=== PATIENT | male | born 1965 | race Caucasian/White ===

== ENCOUNTER 2017-12-07 22:42 | Emergency (ER) | payer MEDICAID ==
--- NOTE | 2017-12-07 22:54 | Emergency Department Record ---
History of Present Illness - General Chief complaint: Lower Extremity Pain Stated complaint: BACK/LEG PAIN Time Seen by Provider: 12/07/17 22:48 Source: Patient, EMS Mode of Arrival: Wheelchair Limitations: No limitations - History of Present Illness Initial comments: 52 yo male presents with EMS from [place]. The patient states he suffers from chronic back pain and chronic leg weakness. He was in [place] and needed a ride back to [place] where he lives so he states he called an ambulance. He was visiting his father. He got to [place] via [place] yesterday but did not have a ride home tonight. He admits to drinking. He denies any injures today. His back pain and leg issues are unchanged from his chronic condition. He states he is embarrassed that he used the ambulance to get back to [facility]. He had surgery in June to help the chronic pain and weakness but states it did very little to improve his condition. No headaches, no nausea, vomiting or diarrhea. MD Complaint: Other (chronic back and leg pain.) -: Year(s) Location: Left -: Yes Arthralgia Quality: Aching Consistency: Constant Improves with: Rest Worsens with: Walking, Weight bearing Associated Symptoms: Denies other symptoms - Related Data Allergies Allergy/AdvReac Type Severity Reaction Status Date / Time No Known Allergies Allergy . Unverified 11/28/17 10:09 Review of Systems Constitutional: Denies: Chills, Fever, Malaise, Weakness Eyes: Denies: Eye discharge, Eye pain ENT: Denies: Congestion, Throat pain Respiratory: Denies: Cough, Dyspnea, Hemoptysis, Stridor, Wheezes Cardiovascular: Denies: Chest pain, Palpitations, Syncope Endocrine: Denies: Fatigue Gastrointestinal: Denies: Abdominal pain, Diarrhea, Nausea, Vomiting Genitourinary: Denies: Dysuria, Frequency, Hematuria Musculoskeletal: Reports: As per HPI, Back pain, Neck pain. Denies: Joint swelling, Myalgia Skin: Denies: Bruising, Change in color, Rash Neurological: Denies: Confusion, Headache, Numbness, Weakness Psychiatric: Denies: Anxiety Hematological/Lymphatic: Denies: Blood Clots, Easy bleeding, Easy bruising, Swollen glands Past Medical History - SOCIAL HISTORY Smoking Status: Current every day smoker - RESPIRATORY Hx Respiratory Disorders: No - CARDIOVASCULAR Hx Cardio Disorders: Yes Comment:: high cholesterol - NEURO Hx Neuro Disorders: Yes Hx Neuropathy: Yes - GI Hx GI Disorders: Yes Hx Reflux: Yes Hx Pancreatitis: Yes - Hx Genitourinary Disorders: No - ENDOCRINE Hx Endocrine Disorders: No - MUSCULOSKELETAL Hx Musculoskeletal Disorders: Yes Comment:: Sciatic pain - PSYCH Hx Psych Problems: No - HEMATOLOGY/ONCOLOGY Hx Hematology/Oncology Disorders: No Family Medical History Hx Cancer: Brother/Sister *Cancer Comment: brain Hx Heart Disease: Mother *Heart Comment: [place] Physical Exam - General General Appearance: Alert, Oriented x3, Cooperative Limitations: No limitations - Head Head exam: Atraumatic, Normocephalic, Normal inspection - Eye Eye exam: Normal appearance, PERRL. negative: Conjunctival injection, Scleral icterus - ENT ENT exam: Normal exam, Mucous membranes moist Ear exam: Normal external inspection Nasal Exam: Normal inspection Mouth exam: Normal external inspection - Neck Neck exam: Normal inspection, Full ROM. negative: Tenderness - Respiratory Respiratory exam: Normal lung sounds bilaterally. negative: Respiratory distress - Cardiovascular Cardiovascular Exam: Normal rhythm, Normal heart sounds Peripheral Pulses: 2+: Radial (R), Radial (L) - GI/Abdominal GI/Abdominal exam: Soft. negative: Guarding, Rebound, Rigid, Tenderness - Rectal Rectal exam: Deferred - exam: Deferred - Extremities Extremities exam: Normal inspection, Full ROM, Normal capillary refill. negative: Pedal edema, Tenderness - Back Back exam: Reports: Normal inspection, Full ROM, Paraspinal tenderness, Vertebral tenderness (lumbar). Denies: CVA tenderness (R), CVA tenderness (L) - Neurological Neurological exam: Alert, Oriented X3, Other (Walks without assistance, mild widebased, no foot drop, no limitation on walking) - Psychiatric Psychiatric exam: Normal affect, Normal mood, Other (cooperative, conversational , pleasant). negative: Agitated, Anxious - Skin Skin exam: Dry, Intact, Normal color, Warm Course Vital Signs 12/07/17 22:45 Pulse Rate [ 94 H Pulse Ox Probe] Respiratory 20 Rate Blood Pressure 155/103 [Left Arm] Pulse Ox 96 - Reevaluation(s) Reevaluation #1: 12/07/17 22:59 The EMR was reviewed A note from [facility] was reviewed from 09/28/17. The same difficult, wide based gait issues were noted and corroborate the patient's statement of chronic gait difficulties. "GAIT: the patient appears to have balance issues. Walks with a wobbly gait and wide base..." MRI from 01/2017 was reviewed with multilevel, mild to moderate disease. 12/07/17 23:03 The patient states he would like to go home at this time. 12/07/17 23:04 The patient denies any new complaints. He does not have any acute findings on examination that differ from prior notes. He has been drinking but he is alert , expresses clear thoughts, recalls all events, provides a logical history of how he came into our care. He will be encourage to rest and allow serial exams here. He is cooperative and pleasant. 12/08/17 00:56 The patient remains cooperative. He seems to be near a baseline. Given the hour I have offered a comfortable bed and food unless he can get a ride. 12/08/17 04:56 The patient has remained very cooperative. He has been sleeping comfortably. He has been up ambulating at times as well. No complaints. Good appetite. 12/08/17 05:20 The patient is up to the restroom. No complaints. He is at his baseline. He requests to wait until 6am when the [employer] buses are in operation. His walking is slightly wide based. He states this is his norm. This is consistent with the physical therapy note that was reviewed. Disposition Disposition: Discharge Clinical Impression: Chronic back pain, Alcohol use Disposition: Home, Self-Care Condition: (1) Good Instructions: Chronic Back Pain (ED) Additional Instructions: Follow up your back pain with your doctor Return to the ER if you have any new concerns, new pain, or weakness Avoid excessive alcohol Forms: Patient Portal Access Time of Disposition: 06:23 Quality - Quality Measures Quality Measures: N/A - Blood Pressure Screening Does Patient Have Any of the Following: No Blood Pressure Classification: Hypertensive Reading Systolic Measurement: 164 Diastolic Measurement: 95 Screening for High Blood Pressure: < Pre-Hypertensive BP, F/U Documented > [ G8950] Pre-Hypertensive Follow-up Interventions: Referral to alternative/primary care provider.
== END 2017-12-08 06:31 | disposition home or self-care (01) ==
LOC: ER 22:42
DX: M54.5 Low back pain (principal); G89.29 Other chronic pain; M79.605 Pain in left leg; R26.89 Other abnormalities of gait and mobility; F17.210 Nicotine dependence, cigarettes, uncomplicated; Z72.89 Other problems related to lifestyle
CPT/HCPCS: 99282

== ENCOUNTER 2018-01-17 18:57 | Emergency (ER) | payer MEDICAID ==
[2018-01-17] MEDS ORDERED: MVI, ADULT NO.4 WITH VIT K 10 ML, THIAMINE HCL IV 100 MG in 0.9 % SODIUM CHLORIDE 1000M... IV SCH ×3 (19:45)
[2018-01-17 19:54] LABS: BASO % 0.3 % (0-6); EOS % 6.6 % (0-6); GRAN % 32.6 % (47-80); HEMATOCRIT 50.1 % (42.0-52.0); HEMOGLOBIN 17.1 gm/dl (14.0-18.0); LYMPH % 48.9 % (16-45); MEAN CELL VOLUME 91.3 fl (81-97); MEAN CORPUSCULAR HEMOGLOBIN 31.1 pg (27-33); MEAN CORPUSCULAR HGB CONC 34.1 g/dl (32-36); MEAN PLATELET VOLUME 9.3 fl (7.4-10.4); MONO % 11.6 % (0-9); PLATELET COUNT 296 K/uL (130-400); RED BLOOD COUNT 5.49 M/uL (4.40-5.70); RED CELL DISTRIBUTION WIDTH 12.4 % (11.5-14.5); WHITE BLOOD COUNT W/O DIFF 6.5 K/uL (4.2-12.2)
[2018-01-17] MEDS ORDERED: LORAZEPAM 2 MG/ML VIAL IV ONE ×2 (19:54→22:47)
[2018-01-17 20:17] LABS: ALB/GLOB RATIO 1.2 (1.1-1.8); ALBUMIN 4.7 g/dL (4.0-5.0); ALKALINE PHOSPHATASE 75 U/L (40-129); ALT/SGPT 73 U/L (<41); AST/SGOT 61 U/L (10.0-50.0); BLOOD UREA NITROGEN 5 mg/dL (6-20); CREATININE 0.6 mg/dL (0.7-1.2); EST GLOMERULAR FILTRATION RATE > 60 mL/min; GLUCOSE,RANDOM 104 mg/dL (74-109); TOTAL PROTEIN 8.5 g/dL (6.6-8.7)
[2018-01-17 20:18] LABS: ALCOHOL 0.352 g/dL (0-0.010)
--- NOTE | 2018-01-17 20:53 | Emergency Department Record ---
History of Present Illness - General Chief Complaint: Alcohol Intoxication Stated Complaint: INTOXICATED Time Seen by Provider: 01/17/18 19:20 Source: Patient, Police Mode of Arrival: Ambulatory Limitations: No limitations, Altered mental status - History of Present Illness Initial Comments: pt brought in by ems, police because he is intoxicated and he fell and hit his head very hard. MD Complaint: Alcohol intoxication Last Drink: Just [employer] Chronic Alcohol Use: Yes Previous Visits for Alcohol Intoxication?: Yes Recent Trauma: Yes Associated Symptoms: Denies other symptoms Treatments Prior to Arrival: None - [place] Coma Scale Eye Response: (4) Open spontaneously Motor Response: (6) Obeys commands Verbal Response: (4) Confused conversation [place] Total: 14 - Related Data Allergies Allergy/AdvReac Type Severity Reaction Status Date / Time No Known Allergies Allergy . Verified 01/17/18 19:09 Travel Screening - Travel/Exposure Within Last 30 Days Have you traveled within the last 30 days?: No - Travel/Exposure Within Last Year Have you traveled outside the [place] in the last year?: No - Additonal Travel Details Have you been exposed to anyone with a communicable illness?: No - Travel Symptoms Symptom Screening: None Review of Systems ROS unobtainable: Due to mental status Reviewed: No additional complaints except as noted below Constitutional: Reports: As per HPI. Denies: Chills, Fever, Malaise, Night sweats, Weakness, Weight change Eyes: Reports: As per HPI. Denies: Eye discharge, Eye pain, Photophobia, Vision change ENT: Reports: As per HPI. Denies: Congestion, Dental pain, Ear pain, Epistaxis , Hearing loss, Throat pain Respiratory: Reports: As per HPI. Denies: Cough, Dyspnea, Hemoptysis, Stridor, Wheezes Cardiovascular: Reports: As per HPI. Denies: Arrhythmia, Chest pain, Dyspnea on exertion, Edema, Murmurs, Orthopnea, Palpitations, Paroxysmal nocturnal dyspnea, Rheumatic Fever, Syncope Endocrine: Reports: As per HPI. Denies: Fatigue, Heat or cold intolerance, Polydipsia, Polyuria Gastrointestinal: Reports: As per HPI. Denies: Abdominal pain, Constipation, Diarrhea, Hematemesis, Hematochezia, Melena, Nausea, Vomiting Genitourinary: Reports: As per HPI. Denies: Dysuria, Frequency, Hematuria, Incontinence, Retention, Testicular pain, Testicular mass, Urgency Musculoskeletal: Reports: As per HPI. Denies: Arthralgia, Back pain, Gout, Joint swelling, Myalgia, Neck pain Skin: Reports: As per HPI. Denies: Bruising, Change in color, Change in hair/ nails, Lesions, Pruritus, Rash Neurological: Reports: As per HPI. Denies: Abnormal gait, Confusion, Headache, Numbness, Paresthesias, Seizure, Tingling, Tremors, Vertigo, Weakness Psychiatric: Reports: As per HPI. Denies: Anxiety, Auditory hallucinations, Depression, Homicidal thoughts, Suicidal thoughts, Visual hallucinations Hematological/Lymphatic: Reports: As per HPI. Denies: Anemia, Blood Clots, Easy bleeding, Easy bruising, Swollen glands Past Medical History - SOCIAL HISTORY Smoking Status: Current every day smoker Alcohol Use: Heavy Drug Use: Occasional - RESPIRATORY Hx Respiratory Disorders: No - CARDIOVASCULAR Hx Cardio Disorders: Yes Comment:: high cholesterol - NEURO Hx Neuro Disorders: Yes Hx Neuropathy: Yes - GI Hx GI Disorders: Yes Hx Reflux: Yes Hx Pancreatitis: Yes - Hx Genitourinary Disorders: No - ENDOCRINE Hx Endocrine Disorders: No - MUSCULOSKELETAL Hx Musculoskeletal Disorders: Yes Comment:: Sciatic pain - PSYCH Hx Psych Problems: No - HEMATOLOGY/ONCOLOGY Hx Hematology/Oncology Disorders: No Family Medical History Any Significant Family History?: No Hx Cancer: Brother/Sister *Cancer Comment: brain Hx Heart Disease: Mother *Heart Comment: [place] Physical Exam - General General Appearance: Alert, Oriented x3, Mild distress, Other (intoxicated) - Head Head exam: Normal inspection - Eye Eye exam: Normal appearance, PERRL, EOMI Pupils: Normal accommodation - ENT ENT exam: Normal exam, Mucous membranes moist, Normal external ear exam, Normal orophraynx, TM's normal bilaterally Ear exam: Normal external inspection. negative: External canal tenderness Nasal Exam: Normal inspection. negative: Discharge, Sinus tenderness Mouth exam: Normal external inspection, Tongue normal Teeth exam: Normal inspection. negative: Dental caries Throat exam: Normal inspection. negative: Tonsillar erythema, Tonsillar exudate - Neck Neck exam: Normal inspection, Full ROM. negative: Tenderness - Respiratory Respiratory exam: Normal lung sounds bilaterally. negative: Respiratory distress - Cardiovascular Cardiovascular Exam: Regular rate, Normal rhythm, Normal heart sounds - GI/Abdominal GI/Abdominal exam: Soft, Normal bowel sounds. negative: Tenderness - Rectal Rectal exam: Deferred - exam: Deferred - Extremities Extremities exam: Normal inspection, Full ROM, Normal capillary refill. negative: Tenderness - Back Back exam: Reports: Normal inspection, Full ROM. Denies: Muscle spasm, Rash noted, Tenderness - Neurological Neurological exam: Alert, CN II-XII intact, Normal gait, Oriented X3 - Psychiatric Psychiatric exam: Normal affect, Normal mood - Skin Skin exam: Dry, Intact, Normal color, Warm Course Vital Signs 01/17/18 19:09 Pulse Rate [ 95 H Pulse Ox Probe] Respiratory 14 Rate Blood Pressure 128/84 [Left Arm] Pulse Ox 96 - Reevaluation(s) Reevaluation #1: 01/18/18 02:21 pt slept andis now being taken by the police Medical Decision Making - Lab Data Result diagrams: 01/17/18 19:35 01/17/18 19:38 Lab Results 01/17/18 01/17/18 01/17/18 Range/Units 19:35 19:38 19:38 WBC 6.5 (4.2-12.2) K/uL RBC 5.49 (4.40-5.70) M/uL Hgb 17.1 (14.0-18.0) gm/dl Hct 50.1 (42.0-52.0) % MCV 91.3 (81-97) fl MCH 31.1 (27-33) pg MCHC 34.1 (32-36) g/dl RDW 12.4 (11.5-14.5) % Plt Count 296 (130-400) K/uL MPV 9.3 (7.4-10.4) fl Gran % 32.6 L (47-80) % Lymphocytes % 48.9 H (16-45) % Monocytes % 11.6 H (0-9) % Eosinophils % 6.6 H (0-6) % Basophils % 0.3 (0-6) % Sodium 140 (136-145) mmol/L Potassium 4.1 (3.4-4.5) mmol/L Chloride 102 (98-107) mmol/L Carbon Dioxide 20.0 L (22-29) mmol/L Anion Gap 18.0 H (7-16) BUN 5 L (6-20) mg/dL Creatinine 0.6 L (0.7-1.2) mg/dL Estimated GFR > 60 mL/min Random Glucose 104 (74-109) mg/dL Calcium 9.3 (8.6-10.0) mg/dL Total Bilirubin 0.30 (0.2-1.0) mg/dL AST 61 H (10.0-50.0) U/L ALT 73 H (<41) U/L Alkaline Phosphatase 75 (40-129) U/L Total Protein 8.5 (6.6-8.7) g/dL Albumin 4.7 (4.0-5.0) g/dL Globulin 3.8 (1.4-4.8) gm/dL Albumin/Globulin Ratio 1.2 (1.1-1.8) Ethyl Alcohol Cancelled 0.352 H Disposition Clinical Impression: Alcohol intoxication Qualifiers: Complication of substance-induced condition: uncomplicated Qualified Code(s): F10.920 - Alcohol use, unspecified with intoxication, uncomplicated Disposition: Home, Self-Care Condition: (1) Good Instructions: Alcohol Intoxication (ED), Abuse of Alcohol (ED) Additional Instructions: follow up with family doctor. return sooner if worse. decrease alcohol intake. Forms: Patient Portal Access Quality - Quality Measures Quality Measures: N/A - Blood Pressure Screening Does Patient Have Any of the Following: No Blood Pressure Classification: Pre-Hypertensive BP Reading Systolic Measurement: 116 Diastolic Measurement: 83 Screening for High Blood Pressure: < Pre-Hypertensive BP, F/U Documented > [ G8950] Pre-Hypertensive Follow-up Interventions: Follow-up with rescreen every year.
--- NOTE | 2018-01-19 09:04 | CT SCAN REPORT ---
EXAM: CT SCAN OF THE HEAD HISTORY: PATIENT HAS A HISTORY OF INTOXICATION. PATIENT FELL AND HIT HEAD. TECHNIQUE: Serial axial CT scan of the head was performed 2.5 mm intervals from the base of the skull to the apex without the use of intravenous contrast. Comparison: MRI of the brain dated 02/22/17 is provided. FINDINGS: The ventricles, cisterns, and sulci appear within normal limits for size, shape and attenuation. There is no mass or mass effect. The lemus and white differentiation appear within normal limits. There is no CT evidence of intra or extraaxial fluid collection to suggest bleeding. Bone windows demonstrate no CT evidence of a fracture or dislocation of the skull. Moderate mucosal thickening is noted within the bilateral maxillary sinuses. IMPRESSION: NO CT EVIDENCE OF AN ACUTE INTRACRANIAL PROCESS. JOB NUMBER: [id number] [facility]
--- NOTE | 2018-01-19 09:29 | CT SCAN REPORT ---
EXAM: CT SCAN OF THE CERVICAL SPINE HISTORY: PATIENT HAS A HISTORY OF FALL. TECHNIQUE: Serial axial CT scan of the cervical spine was performed at 2.5 mm intervals from the base of the skull to the thoracic inlet without the use of intravenous contrast. Sagittal and coronal reconstructions are provided. Comparison: MRI of the cervical spine dated 02/22/17. is provided. FINDINGS: The vertebral body height, contour, and AP alignment of the cervical spine is within normal limits. In the interval there has been post laminectomy changes at the C3-C4 disk space level. Bilateral posterior facet screws and fusion rods are identified. No hardware failure is noted. There is no CT evidence of a fracture or dislocation of the cervical spine. Degenerative disk disease of the lower cervical spine is again noted. The prevertebral soft tissue is unremarkable. The parapharyngeal fat is unremarkable. The visualized parotid glands, submandibular glands, and thyroid gland are unremarkable. There is no CT evidence of cervical lymphadenopathy. Airways are patent. The lung windows of the lung apices are unremarkable. IMPRESSION: POSTOPERATIVE CHANGES OF THE CERVICAL SPINE AND DEGENERATIVE DISK DISEASE OF THE CERVICAL SPINE ARE NOTED WITHOUT CT EVIDENCE OF AN ACUTE PROCESS INVOLVING THE CERVICAL SPINE. JOB NUMBER: [id number] [facility]
== END 2018-01-18 02:33 | disposition home or self-care (01) ==
LOC: ER 18:57
DX: S09.90XA Unspecified injury of head, initial encounter (principal); F10.920 Alcohol use, unspecified with intoxication, uncomplicated; Y90.8 Blood alcohol level of 240 mg/100 ml or more; W01.10XA Fall on same level from slipping, tripping and stumbling with subsequent striking against unspecified object, initial encounter; F17.210 Nicotine dependence, cigarettes, uncomplicated
CPT/HCPCS: 99284 ×2; 96376; 96374; 96375; 85025; 80053; 72125; 70450; G0480; J2060; 80320; J3411; J7030

== ENCOUNTER 2018-05-08 17:06 | Emergency (ER) | payer MEDICAID ==
--- NOTE | 2018-05-08 18:05 | Emergency Department Record ---
History of Present Illness - General Chief Complaint: Alcohol Intoxication Stated Complaint: INTOXICATION Time Seen by Provider: 05/08/18 18:00 Source: Patient Mode of Arrival: Ambulatory Limitations: No limitations - History of Present Illness Initial Comments: 52 yo male presents to ED for evaluation of alcohol intoxication, brought by police for medical clearance to go to custodial. Patient denies pain or injury, but does report alcohol use today. Patient denies health problems at his baseline. 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) Chronic Alcohol Use: Yes Recent Trauma: No Associated Symptoms: Denies other symptoms Treatments Prior to Arrival: None - [place] Coma Scale Eye Response: (4) Open spontaneously Motor Response: (6) Obeys commands Verbal Response: (5) Oriented [place] Total: 15 - Related Data Allergies Allergy/AdvReac Type Severity Reaction Status Date / Time No Known Allergies Allergy Unverified 04/22/18 10:22 Travel Screening - Travel/Exposure Within Last 30 Days Have you traveled within the last 30 days?: No Review of Systems Constitutional: Denies: Chills, Fever, Malaise, Night sweats Eyes: Denies: Eye discharge, Eye pain ENT: Denies: Congestion, Ear pain, Epistaxis Respiratory: Denies: Cough, Dyspnea Cardiovascular: Denies: Chest pain, Dyspnea on exertion, Palpitations Endocrine: Denies: Fatigue, Heat or cold intolerance Gastrointestinal: Denies: Abdominal pain, Nausea, Vomiting Genitourinary: Denies: Incontinence, Retention Musculoskeletal: Denies: Arthralgia, Back pain, Gout, Joint swelling Skin: Denies: Bruising, Change in color Neurological: Denies: Abnormal gait, Confusion, Headache Psychiatric: Denies: Anxiety Hematological/Lymphatic: Denies: Anemia, Blood Clots Past Medical History - SOCIAL HISTORY Smoking Status: Current every day smoker Alcohol Use: Heavy Drug Use: None - RESPIRATORY Hx Respiratory Disorders: No - CARDIOVASCULAR Hx Cardio Disorders: Yes Comment:: high cholesterol - NEURO Hx Neuro Disorders: Yes Hx Neuropathy: Yes - GI Hx GI Disorders: Yes Hx Reflux: Yes Hx Pancreatitis: Yes - Hx Genitourinary Disorders: No - ENDOCRINE Hx Endocrine Disorders: No - MUSCULOSKELETAL Hx Musculoskeletal Disorders: Yes Comment:: Sciatic pain - PSYCH Hx Psych Problems: No - HEMATOLOGY/ONCOLOGY Hx Hematology/Oncology Disorders: No Family Medical History Any Significant Family History?: Yes Hx Cancer: Brother/Sister *Cancer Comment: brain Hx Heart Disease: Mother *Heart Comment: [place] Physical Exam - General General Appearance: Alert, Oriented x3, Cooperative, Mild distress, Other ( Clinically intoxicated on examination, mild slurred speech, moves all extremities spontaneously.) Limitations: No limitations - Head Head exam: Atraumatic, Normocephalic Head exam detail: Abrasion, Other (Mild abrasions to the right forehead that are healing.). negative: Contusion, Lincoln's sign, General tenderness, Hematoma , Laceration - Eye Eye exam: Normal appearance. negative: Conjunctival injection, Periorbital swelling, Periorbital tenderness, Scleral icterus - ENT Ear exam: negative: Auricular hematoma, Auricular trauma Nasal Exam: negative: Active bleeding, Discharge, Dried blood, Foreign body Mouth exam: negative: Drooling, Laceration, Muffled voice, Tongue elevation - Neck Neck exam: Normal inspection. negative: Meningismus, Tenderness - Respiratory Respiratory exam: Normal lung sounds bilaterally. negative: Respiratory distress, Rhonchi, Stridor, Wheezes - Cardiovascular Cardiovascular Exam: Regular rate, Normal rhythm, Normal heart sounds - GI/Abdominal GI/Abdominal exam: Soft. negative: Rebound, Rigid, Tenderness - Rectal Rectal exam: Deferred - exam: Deferred - Extremities Extremities exam: Normal inspection, Other (Abrasions to the right hand/distal forearm dorsally, FROM, strong distal radial pulse). negative: Calf tenderness , Pedal edema, Tenderness - Back Back exam: Denies: CVA tenderness (R), CVA tenderness (L) - Neurological Neurological exam: Alert, Oriented X3. negative: Motor sensory deficit - Psychiatric Psychiatric exam: Normal affect, Normal mood - Skin Skin exam: Abrasion (asz described above) Type of lesion: abrasion Course Vital Signs 05/08/18 17:19 Temperature 98.4 F Pulse Rate [ 116 H Pulse Ox Probe] Respiratory 18 Rate Blood Pressure 134/83 [Left Arm] Pulse Ox 93 L - Reevaluation(s) Reevaluation #1: 05/08/18 18:41 Laboratory studies were reviewed: ETOH 0.400 AG 19 AST 63/ALT 58 Labs are otherwise grossly unremarkable for an acute process. IVFs are infusing for elevated heart rate, will initiate imaging of the head at this time given recent evidence for head injury on examination. Reevaluation #2: 05/08/18 19:14 Patient reassessed, resting comfortably at this time. Will continue to observe pending lowering of his alcohol level. Reevaluation #3: 05/08/18 21:19 PBT reassessed by police, 0.235. Patient has ambulated to the bathroom with steady gait, and appears medically cleared for discharge to custodial. Medical Decision Making - Lab Data Result diagrams: 05/08/18 17:20 05/08/18 17:20 Disposition Disposition: Discharge Clinical Impression: Alcohol intoxication Qualifiers: Complication of substance-induced condition: uncomplicated Qualified Code(s): F10.920 - Alcohol use, unspecified with intoxication, uncomplicated Disposition: Home, Self-Care Condition: (2) Stable Instructions: Alcohol Intoxication (ED) Additional Instructions: Return to ED if your symptoms worsen or if you have any concerns. Alcohol in moderation. Forms: Patient Portal Access Time of Disposition: 21:20 Quality - Quality Measures Quality Measures: N/A - Blood Pressure Screening Does Patient Have Any of the Following: No Blood Pressure Classification: Hypertensive Reading Systolic Measurement: 145 Diastolic Measurement: 101 Screening for High Blood Pressure: < First Hypertensive BP, F/U Documented > [ G8950] First Hypertensive Follow-up Interventions: Referral to alternative/primary care provider.
[2018-05-08] MEDS ORDERED: 0.9 % SODIUM CHLORIDE 1000ML 1,000 ML IV SCH (18:15)
[2018-05-08 18:18] LABS: BASO % 0.3 % (0-6); EOS % 2.9 % (0-6); GRAN % 51.6 % (47-80); HEMATOCRIT 48.1 % (42.0-52.0); HEMOGLOBIN 16.6 gm/dl (14.0-18.0); LYMPH % 38.4 % (16-45); MEAN CELL VOLUME 90.6 fl (81-97); MEAN CORPUSCULAR HEMOGLOBIN 31.3 pg (27-33); MEAN CORPUSCULAR HGB CONC 34.5 g/dl (32-36); MEAN PLATELET VOLUME 9.3 fl (7.4-10.4); MONO % 6.8 % (0-9); PLATELET COUNT 244 K/uL (130-400); RED BLOOD COUNT 5.31 M/uL (4.40-5.70); RED CELL DISTRIBUTION WIDTH 13.7 % (11.5-14.5); WHITE BLOOD COUNT W/O DIFF 8.8 K/uL (4.2-12.2)
[2018-05-08 18:32] LABS: BLOOD UREA NITROGEN 6 mg/dL (6-20); CREATININE 0.7 mg/dL (0.7-1.2); EST GLOMERULAR FILTRATION RATE > 60 mL/min
[2018-05-08 18:33] LABS: TOTAL PROTEIN 8.1 g/dL (6.6-8.7)
[2018-05-08 18:35] LABS: GLUCOSE,RANDOM 107 mg/dL (74-109)
[2018-05-08 18:38] LABS: ALB/GLOB RATIO 1.5 (1.1-1.8); ALBUMIN 4.9 g/dL (4.0-5.0); ALKALINE PHOSPHATASE 62 U/L (40-129); ALT/SGPT 58 U/L (<41); AST/SGOT 63 U/L (10.0-50.0)
== END 2018-05-08 21:31 | disposition home or self-care (01) ==
LOC: ER 17:06
DX: F10.920 Alcohol use, unspecified with intoxication, uncomplicated (principal); F17.210 Nicotine dependence, cigarettes, uncomplicated; Y90.8 Blood alcohol level of 240 mg/100 ml or more
CPT/HCPCS: 99283 ×2; 85025; 80053; G0480; 80320

== ENCOUNTER 2018-08-10 11:56 | Emergency (ER) | payer MEDICAID ==
--- NOTE | 2018-08-10 12:25 | Emergency Department Record ---
History of Present Illness - General Chief complaint: Rectal bleeding Stated complaint: RECTAL BLEEDING Time Seen by Provider: 08/10/18 12:05 Source: Patient Mode of Arrival: Ambulatory Limitations: No limitations - History of Present Illness Initial comments: The patient noticed blood on the TP when wiping when having BM's yesterday and the day prior. He has had no nausea, vomiting, AP, dizziness, or bleeding when not having a BM. He also has had no bleeding today and no dizziness when standing. The patient is due to have an EGD and Colonoscopy soon also. MD complaint: Blood on toilet paper, Blood streaked stool Onset/Timin -: Days(s) Improves with: None Worsens with: None Associated Symptoms: Weakness Treatments Prior to Arrival: None - Related Data Allergies Allergy/AdvReac Type Severity Reaction Status Date / Time No Known Allergies Allergy no Unverified 08/10/18 12:03 allergies Travel Screening - Travel/Exposure Within Last 30 Days Have you traveled within the last 30 days?: No Review of Systems Constitutional: Denies: Chills, Fever Eyes: Denies: Eye discharge ENT: Denies: Congestion Respiratory: Denies: Cough, Dyspnea Cardiovascular: Denies: Arrhythmia Past Medical History - SOCIAL HISTORY Smoking Status: Current every day smoker Alcohol Use: Occasional Alcohol Use Comment: beer/vodka (1 pint/couple beers) every other day - RESPIRATORY Hx Respiratory Disorders: No - CARDIOVASCULAR Hx Cardio Disorders: Yes Comment:: high cholesterol - NEURO Hx Neuro Disorders: Yes Hx Neuropathy: Yes - GI Hx GI Disorders: Yes Hx Reflux: Yes Hx Pancreatitis: Yes - Hx Genitourinary Disorders: No - ENDOCRINE Hx Endocrine Disorders: No - MUSCULOSKELETAL Hx Musculoskeletal Disorders: Yes Comment:: Sciatic pain - PSYCH Hx Psych Problems: No - HEMATOLOGY/ONCOLOGY Hx Hematology/Oncology Disorders: No Family Medical History Any Significant Family History?: Yes Hx Cancer: Brother/Sister *Cancer Comment: brain Hx Heart Disease: Mother *Heart Comment: [place] Physical Exam - General General Appearance: Alert, Oriented x3, Cooperative, No acute distress - Head Head exam: Atraumatic, Normocephalic, Normal inspection - Eye Eye exam: Normal appearance, PERRL, EOMI - Neck Neck exam: Normal inspection, Full ROM. negative: Tenderness - Respiratory Respiratory exam: Normal lung sounds bilaterally. negative: Respiratory distress - Cardiovascular Cardiovascular Exam: Regular rate, Normal rhythm, Normal heart sounds - GI/Abdominal GI/Abdominal exam: Soft, Normal bowel sounds. negative: Distended, Hypoactive bowel sounds, Rebound, Rigid, Tenderness - Rectal Rectal exam: Deferred (refused by the patient.) - Extremities Extremities exam: Normal inspection, Full ROM, Normal capillary refill. negative: Tenderness - Neurological Neurological exam: Alert, Normal gait. negative: Abnormal gait Course Vital Signs 08/10/18 11:58 Temperature 98.3 F Pulse Rate 116 H Respiratory 20 Rate Blood Pressure 178/108 Pulse Ox 95 - Reevaluation(s) Reevaluation #1: I did discuss the lab results with the patient. His HGB is very stable at this time but he did have mildly elevated LFT's which has been a chronic issue. Also he did have a mildly elevated Lipase but since the patient is having no AP, nausea, or any abdominal tenderness I do not feel that needs to be investigated further today. He is to see his PCP next week as planned and to have the lab work rechecked and also to see Dr. Alarcon for an Upper and Lower scope. 08/10/18 12:53 Medical Decision Making - Lab Data Result diagrams: 08/10/18 12:20 08/10/18 12:20 Disposition Disposition: Discharge Clinical Impression: GI bleed Qualifiers: GI bleed type/associated pathology: unspecified gastrointestinal hemorrhage type Qualified Code(s): K92.2 - Gastrointestinal hemorrhage, unspecified Disposition: Home, Self-Care Condition: (2) Stable Instructions: Rectal Bleeding (ED) Additional Instructions: Please see Dr. Alarcon in the Specialty clinic when possible and also keep the appointment with your PCP for next week. Please have your family doctor recheck your lab work. Decrease your alcohol intake and stop the Meloxicam. Please return to the ER for any abdominal pain, nausea, vomiting, or worsening bleeding. Referrals: [facility] Special[facility] [Provider Group] Forms: Patient Portal Access Time of Disposition: 13:00 Quality - Quality Measures Quality Measures: N/A - Blood Pressure Screening View Details: Yes Does Patient Have Any of the Following: No Blood Pressure Classification: Hypertensive Reading Systolic Measurement: 178 Diastolic Measurement: 108 Screening for High Blood Pressure: < First Hypertensive BP, F/U Documented > [ [id number]] First Hypertensive Follow-up Interventions: Referral to alternative/primary care provider.
[2018-08-10 12:32] LABS: BASO % 0.3 % (0-6); EOS % 2.7 % (0-6); GRAN % 65.1 % (47-80); HEMATOCRIT 45.8 % (42.0-52.0); HEMOGLOBIN 15.2 gm/dl (14.0-18.0); MEAN CELL VOLUME 90.3 fl (81-97); MEAN CORPUSCULAR HGB CONC 33.2 g/dl (32-36); MEAN PLATELET VOLUME 9.2 fl (7.4-10.4); MONO % 11.9 % (0-9); PLATELET COUNT 211 K/uL (130-400); RED BLOOD COUNT 5.07 M/uL (4.40-5.70); RED CELL DISTRIBUTION WIDTH 13.3 % (11.5-14.5); WHITE BLOOD COUNT W/O DIFF 8.8 K/uL (4.2-12.2)
[2018-08-10 12:39] LABS: BLOOD UREA NITROGEN 13 mg/dL (6-20); CREATININE 0.8 mg/dL (0.7-1.2); EST GLOMERULAR FILTRATION RATE > 60 mL/min
[2018-08-10 12:40] LABS: TOTAL PROTEIN 7.6 g/dL (6.6-8.7)
[2018-08-10 12:41] LABS: INR 1.1; PARTIAL THROMBOPLASTIN TIME 26.6 SECONDS (24.5-39.1); PROTHROMBIN TIME (PATIENT) 10.7 SECONDS (9.5-12.1)
[2018-08-10 12:42] LABS: GLUCOSE,RANDOM 107 mg/dL (74-109)
[2018-08-10 12:44] LABS: ALT/SGPT 73 U/L (<41)
[2018-08-10 12:45] LABS: ALBUMIN 4.5 g/dL (4.0-5.0); ALKALINE PHOSPHATASE 65 U/L (40-129); AST/SGOT 61 U/L (10.0-50.0); LIPASE 121 U/L (13-60)
[2018-08-10 12:46] LABS: BILIRUBIN,DIRECT < 0.2 mg/dL (0-0.3)
== END 2018-08-10 13:13 | disposition home or self-care (01) ==
LOC: ER 11:56
DX: K92.2 Gastrointestinal hemorrhage, unspecified (principal); R94.5 Abnormal results of liver function studies; F17.210 Nicotine dependence, cigarettes, uncomplicated
CPT/HCPCS: 80048; 80076; 83690; 85025; 85610; 85730; 99283